=== PATIENT | male | born 1945 | race Caucasian/White ===

== ENCOUNTER 2016-09-28 18:26 | Emergency (ER) | payer OTHER ==
[~2016-09-28] VITALS: Ht 175.3 cm; Wt 80.8 kg
[2016-09-28 18:34] VITALS: TEMP 36.8; Ht 175.3 cm; Wt 80.8 kg
[2016-09-28] MEDS ORDERED: SODIUM CHLORIDE 0.9% 1000ML 1,000 ML IV STA (19:07)
[2016-09-28 19:44] LABS: BASO % 0.1 %; BASO ABS # 0.01 K/uL (0-0.2); COMPLETE YES; EOS % 0.4 %; HEMATOCRIT 40.6 % (42-52); IG% 0.2 %; LYMPH % 7.9 %; LYMPH ABS # 1.23 K/uL (1.2-3.4); MEAN CORPUSCULAR HEMOGLOBIN 31.6 pg (25-34); MEAN CORPUSCULAR HGB CONC 36.7 g/dl (32-36); MEAN PLATELET VOLUME 9.2 fL (7.4-10.4); MONO % 12.3 %; NEUT % 79.1 %; PLATELET COUNT 198 K/uL (130-400); RED BLOOD COUNT 4.72 M/uL (4.7-6.1); WHITE BLOOD COUNT 15.61 K/uL (4.8-10.8)
[2016-09-28 19:52] LABS: URINE APPEARANCE CLEAR (CLEAR); URINE BILIRUBIN NEG (NEG); URINE COLOR YELLOW; URINE NITRITE NEG (NEG); URINE PH 6.5 (4.5-7.5); URINE SPECIFIC GRAVITY 1.006 (1.000-1.030); UROBILINOGEN NEG (NEG)
[2016-09-28 19:58] LABS: MANUAL MICROSCOPIC REQUIRED? NO; REVIEW REQ? NO
[2016-09-28] MEDS ORDERED: VITACAP26 PO (20:00)
[2016-09-28] MEDS ORDERED: ASCA500 PO (20:00)
[2016-09-28] MEDS ORDERED: FERR50TA3 PO (20:00)
[2016-09-28] MEDS ORDERED: MULT-845 PO (20:00)
[2016-09-28] MEDS ORDERED: CHOL1000 PO (20:00)
[2016-09-28 20:02] LABS: ALT/SGPT 17 U/L (12-78); AST/SGOT 11 U/L (15-37); BLOOD UREA NITROGEN 10 mg/dl (7-18); BUN/CREATININE RATIO 10.3 (10-20); CALCIUM 8.3 mg/dl (8.5-10.1); CARBON DIOXIDE 26 mmol/L (21-32); CHLORIDE 98 mmol/L (98-107); CREATININE 0.95 mg/dl (0.60-1.40); GLUCOSE 114 mg/dl (70-99); POTASSIUM 3.3 mmol/L (3.5-5.1); SODIUM 134 mmol/L (136-145)
[2016-09-28 20:07] LABS: ALKALINE PHOSPHATASE 77 U/L (45-117)
[2016-09-28 20:41] VITALS: BP 142/83; PULSE 82; O2SAT 95
--- NOTE | 2016-09-28 22:26 | EMERGENCY ROOM VISIT NOTE ---
History Report prepared by Vipulibe: Hilary Negrete Under the Supervision of: Dr. Jermaine Hernandez M.D. First contact with patient: 18:54 Chief Complaint: GI ASSESSMENT Stated Complaint: ACUTE PANCREATITIS,SENT FOR POSSIBLE ADMISSION Nursing Triage Summary: pt c/o upper mid abd pain. denies n/v/d. last BM yesterday. seen at [facility] last night, acute pancreatitis. PCP sugests pt be admitted. History of Present Illness The patient is a 71 year old male who presents to the Emergency Room with complaints of intermittent upper mid abdominal pain for the past 2 days. He rates his pain as an 8/10 and describes it as "achy" in nature. He denies any fevers, nausea, vomiting or diarrhea. He went to [facility] last night and states he had a CT scan and was diagnosed with "acute pancreatitis". He was offered admission to the hospital, but declined. Today his family became more concerned about him, and urged him to come back to an ED. The patient states he drinks 1 glass of white wine every day, and a glass of red wine approximately 2 times a week. He has several beers on weekend. He has been doing this "for over 40 years". He has not drank alcohol in the past 2 days. He still has his gallbladder. His last bowel movement was yesterday. His reports he underwent an endoscopy 1 month ago, which showed a hiatal hernia and gastritis. Source of History: patient Onset: 2 days [employer] Position: abdomen Symptom Intensity: 8/10 Quality: ache Timing: intermittent Associated Symptoms: No diarrhea, No fevers, No nausea, No vomiting Review of Systems See HPI for pertinent positives & negatives. A total of 10 systems reviewed and were otherwise negative. Past Medical & Surgical Medical Problems: (1) Hiatal hernia Social History Smoking Status: Former Smoker Alcohol Use: heavy Drug Use: none Marital Status: Housing Status: lives with family Occupation Status: retired Current/Historical Medications Scheduled Ascorbic Acid (Vitamin C), 1 TAB PO DAILY Cholecalciferol (Vitamin D3), 1 TAB PO DAILY Ferrous Sulfate (Iron (Ferrous Sulfate)), 1 TAB PO WK Multiple Vitamins W/ Minerals (Centrum Silver Adult 50+), 1 TAB PO DAILY Allergies Coded Allergies: No Known Allergies (Unverified , 09/28/16) Physical Exam Vital Signs Date Time Temp Pulse Resp B/P Pulse Ox O2 Delivery O2 Flow Rate FiO2 09/28/16 20:41 82 18 142/83 95 Room Air 09/28/16 19:36 80 09/28/16 18:34 36.8 77 18 180/86 95 Room Air Physical Exam Constitutional: Vital signs reviewed. Eyes: Pupils are equal round reactive to light. Conjunctiva are noninjected. ENT: Pharynx is clear without erythema or exudate. Mucous membranes are moist. Neck supple without meningeal signs. Respiratory: Clear to auscultation bilaterally. Breath sounds are equal bilaterally. Cardiovascular: Regular rate and rhythm. No rubs or gallops. GI: Soft, nondistended and nontender. Bowel sounds are present. Musculoskeletal: No peripheral edema. No lower extremity tenderness. Integumentary: No cyanosis. Neurological: The patient is awake and alert. No focal deficits. Psychiatric: Normal affect. Medical Decision & Procedures Laboratory Results 09/28/16 19:30 Red Blood Count 4.72, Mean Corpuscular Volume 86.0, Mean Corpuscular Hemoglobin 31.6, Mean Corpuscular Hemoglobin Concent 36.7, Mean Platelet Volume 9.2, Neutrophils (%) (Auto) 79.1, Lymphocytes (%) (Auto) 7.9, Monocytes (%) (Auto) 12.3, Eosinophils (%) (Auto) 0.4, Basophils (%) (Auto) 0.1, Neutrophils # (Auto ) 12.36, Lymphocytes # (Auto) 1.23, Monocytes # (Auto) 1.92, Eosinophils # (Auto ) 0.06, Basophils # (Auto) 0.01 09/28/16 19:30 Test 09/28/16 19:25 09/28/16 19:30 Urine Color YELLOW Urine Appearance CLEAR (CLEAR) Urine pH 6.5 (4.5-7.5) Urine Specific [place] 1.006 (1.000-1.030) Urine Protein NEG (NEG) Urine Glucose (UA) NEG (NEG) Urine Ketones 1+ (NEG) Urine Occult Blood NEG (NEG) Urine Nitrite NEG (NEG) Urine Bilirubin NEG (NEG) Urine Urobilinogen NEG (NEG) Urine Leukocyte Esterase NEG (NEG) White Blood Count 15.61 K/uL (4.8-10.8) Red Blood Count 4.72 M/uL (4.7-6.1) Hemoglobin 14.9 g/dL (14.0-18.0) Hematocrit 40.6 % (42-52) Mean Corpuscular Volume 86.0 fL (80-100) Mean Corpuscular Hemoglobin 31.6 pg (25-34) Mean Corpuscular Hemoglobin Concent 36.7 g/dl (32-36) Platelet Count 198 K/uL (130-400) Mean Platelet Volume 9.2 fL (7.4-10.4) Neutrophils (%) (Auto) 79.1 % Lymphocytes (%) (Auto) 7.9 % Monocytes (%) (Auto) 12.3 % Eosinophils (%) (Auto) 0.4 % Basophils (%) (Auto) 0.1 % Neutrophils # (Auto) 12.36 K/uL (1.4-6.5) Lymphocytes # (Auto) 1.23 K/uL (1.2-3.4) Monocytes # (Auto) 1.92 K/uL (0.11-0.59) Eosinophils # (Auto) 0.06 K/uL (0-0.5) Basophils # (Auto) 0.01 K/uL (0-0.2) RDW Standard Deviation 41.0 fL (36.4-46.3) RDW Coefficient of Variation 12.9 % (11.5-14.5) Immature Granulocyte % (Auto) 0.2 % Immature Granulocyte # (Auto) 0.03 K/uL (0.00-0.02) Anion Gap 10.0 mmol/L (3-11) Est Creatinine Clear Calc Drug Dose 71.4 ml/min Estimated GFR () 93.0 Estimated GFR (Non- 80.2 BUN/Creatinine Ratio 10.3 (10-20) Calcium Level 8.3 mg/dl (8.5-10.1) Total Bilirubin 1.1 mg/dl (0.2-1) Direct Bilirubin 0.2 mg/dl (0-0.2) Aspartate Amino Transf (AST/SGOT) 11 U/L (15-37) Alanine Aminotransferase (ALT/SGPT) 17 U/L (12-78) Alkaline Phosphatase 77 U/L (45-117) Troponin I < 0.015 ng/ml (0-0.045) Total Protein 7.7 gm/dl (6.4-8.2) Albumin 3.5 gm/dl (3.4-5.0) Lipase 203 U/L (73-393) Laboratory results as reviewed by me. Medications Administered Medications (Trade) Dose Ordered Sig/Millie Route Start Time Stop Time Status Last Admin Dose Admin Sodium Chloride (Nss 1000ml) 1,000 ml @ 125 mls/hr Q8H STAT IV 09/28/16 19:07 09/28/16 21:32 DC 09/28/16 19:34 125 MLS/HR ECG Indication: abdominal pain Rate (beats per minute): 82 Rhythm: normal sinus (normal sinus rhythm) Findings: no acute ischemic change, no ectopy ED Course 1857: The patient was evaluated in room B9. A complete history and physical exam was performed. 1906: NSS 1000 ml @ 125 mls/hr IV. 2039: I reevaluated the patient. I discussed his test results and offered him the chance to remain in the hospital for further evaluation and management. He declines further evaluation. He states he will continue a clear liquid diet and follow up with his Primary Care Physician, Dr. Fenton with [facility], later this week. Medical Decision his is a 71-year-old male who presents with upper abdominal pain. Differential diagnosis includes pancreatitis, choledocholithiasis, peptic ulcer disease, gastritis, [place]. I did perform a limited focused review of portions of the patient's old chart on the electronic medical record. The patient had a CT scan of the abdomen/pelvis at [facility] yesterday. It showed acute focal pancreatitis, edema within the peripancreatic mesenteric fat surrounding the uncinate process. I did evaluate the patient as noted above. The patient is presenting with upper abdominal pain. He had a CT scan yesterday which was consistent with pancreatitis. His lipase was about 300 yesterday. He is here today because his family became concerned. He does have persistent pain but has no tenderness on examination. He did not wish to have any pain medicines. IV access was established. I did treat the patient with normal saline IV. I did order and personally review the patient's 12-lead EKG as described above. He has no acute ischemic changes on 12 EKG. Urinalysis was unremarkable. I did order and review the patient's blood work as noted in the electronic medical record. His white blood cell count is elevated, which he says was the case yesterday at [facility]. His lipase is not elevated. I did discuss the test results with the patient and his . I did offer hospitalization given his CT scan showed pancreatitis yesterday. He stated that he did not wish to stay in the hospital. He is not having significant pain and would prefer to manage this as an outpatient. He does have an appointment with his primary care physician in 4 days which she will keep. He was advised to stay on a clear liquid diet and told to return should he have any worsening symptoms or any new concerning symptoms. He was discharged in good condition. Impression Primary Impression: Acute pancreatitis Scribe Attestation The scribe's documentation has been prepared under my direct and personally reviewed by me in its entirety. I confirm that the note above accurately reflects all work, treatment, procedures, and medical decision making performed by me. Departure Information Dispostion Home / Self-Care Referrals Karla Fenton M.D. (PCP) Patient Instructions ED Pancreatitis, [facility] Additional Instructions You have been examined and treated today on an emergency basis only. This is not a substitute for, or an effort to provide, complete comprehensive medical care. It is impossible to recognize and treat all injuries or illnesses in a single emergency department visit. It is therefore important that you follow up closely with your physician per your appointment in 4 days. Return for worsening symptoms or if you develop fever, vomiting, or any other concerning symptoms. Problem Qualifiers Primary Impression: Acute pancreatitis Pancreatitis type: unspecified pancreatitis type Acute pancreatitis complication: unspecified Qualified Codes: K85.90 - Acute pancreatitis without necrosis or infection, unspecified
== END 2016-09-28 21:09 | disposition home or self-care (01) ==
LOC: C.EDB 18:27
DX: K85.90 Acute pancreatitis without necrosis or infection, unspecified (principal); K44.9 Diaphragmatic hernia without obstruction or gangrene; Z87.891 Personal history of nicotine dependence; Z79.899 Other long term (current) drug therapy